=== PATIENT | male | born 2000 | race African-American/Black ===

== ENCOUNTER 2020-06-17 13:03 | Emergency (ER) | payer MEDICAID ==
[~2020-06-17] VITALS: Ht 198.1 cm; Wt 82.0 kg
[2020-06-17] MEDS ORDERED: PREDNISONE 20MG TABLET PO ONE (13:15)
[2020-06-17] MEDS ORDERED: ALBUTEROL 6.7GM HFA INHALER ORI ONE (13:15)
[2020-06-17] MEDS ORDERED: IPRATROPIUM BROMIDE (0.02%) 0.5MG/2.5ML NEB HHN STA (14:22)
[2020-06-17] MEDS ORDERED: ALBUTEROL (0.083%) 2.5MG/3ML NEB HHN STA (14:22)
[2020-06-17 14:30] VITALS: BP 128/84
== END 2020-06-17 16:00 | disposition home or self-care (01) ==
LOC: ER 13:03
DX: J45.901 Unspecified asthma with (acute) exacerbation (principal)
CPT/HCPCS: 71045; 94640; 99283; J7512; Z7610